=== PATIENT | female | born 2000 | race Caucasian/White ===

== ENCOUNTER 2020-05-17 21:58 | Emergency (ER) | payer OTHER ==
[2020-05-17 22:35] LABS: Absolute Lymphocytes (CBC) 2.6 K/uL (0.7-4.9); Basophils % 0.9 % (0-1.3); Lymphocytes % 21.3 % (15.3-44.8); MPV 7.9 fL (7.6-11.3); Potassium 3.8 mmol/L (3.5-5.1); RBC Red Blood Cell Count 4.44 M/uL (3.86-4.86)
[2020-05-17] MEDS ORDERED: FENTANYL CITR 100 MCG/2 ML ONE (22:36)
[2020-05-17] MEDS ORDERED: NA CHLORIDE 0.9% 1,000 ML ONE (22:36)
[2020-05-17] MEDS ORDERED: TETANUS & DIPHTHERIA TOX,ADULT 0.5 ML VIAL ONE (22:37)
[2020-05-17] MEDS ORDERED: CEFAZOLIN/SWI 1gm 1 GM/10 ML SYR ONE (22:37)
[2020-05-18] MEDS ORDERED: FENTANYL CITR 100 MCG/2 ML ONE
[2020-05-18 00:11] LABS: Protime INR 1.06
[2020-05-18] MEDS ORDERED: IBUPROFEN 400 MG TAB ONE (01:06)
[2020-05-18] MEDS ORDERED: HYDROCODONE/APAP 7.5/325 MG TAB ONE (01:06)
--- NOTE | 2020-05-18 01:48 | ER ---
Nurse's Notes [facility] Name: Ana Paula Gao Age: 20 yrs Sex: Female : 2000 Arrival Date: 05/17/2020 Time: 22:00 Bed 14 Private MD: Diagnosis: Struck by venomous snake - rattlesnake;Mild envenomation Presentation: 05/17 22:00 Chief complaint: Patient states: "the pt is reporting to be bitten by a rattle snake jd3 about 45 min ago. bite noted to the left foot.". Coronavirus screen: Proceed with normal triage. Ebola Screen: Patient negative for fever greater than or equal to 101.5 degrees Fahrenheit, and additional compatible Ebola Virus Disease symptoms. Initial Sepsis Screen: Does the patient meet any 2 criteria? No. Patient's initial sepsis screen is negative. Does the patient have a suspected source of infection? No. Patient's initial sepsis screen is negative. Risk Assessment: Do you want to hurt yourself or someone else? Patient reports no desire to harm self or others. Onset of symptoms was May 17, 2020. 22:00 Method Of Arrival: EMS: [facility] jd3 22:00 Acuity: MARTIN 2 jd3 Triage Assessment: 22:15 General: Appears in no apparent distress. Behavior is calm, cooperative. Pain: ks7 Complains of pain in left foot Pain currently is 8 out of 10 on a pain scale. Quality of pain is described as sharp, Pain began 30 min ago. Injury Description: Bite sustained to left foot caused by a snake, is from animal, was sustained 30-60 minutes ago. 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 - Social history:: Smoking status: Patient denies any tobacco usage or history of. Screenin:19 Abuse screen: Denies threats or abuse. Denies injuries from another. Nutritional ks7 screening: No deficits noted. Tuberculosis screening: No symptoms or risk factors identified. Fall Risk None identified. 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 pt c;/o 8/10 pain ks7 concentrated in L foot area only. aaox4. 22:34 Reassessment: baseline area marked upon arrival to ED 14. swelling noted and 2 puncture ks7 wounds. 22:50 Reassessment: no change to snake bite wound bed. ks7 23:05 Reassessment: no change to snake bite wound bed. pt resting in bed, eating food. pain ks7 controlled with fentanyl. 23:20 Reassessment: no change to wound size. ks7 23:34 Reassessment:. Pain:. ks7 23:52 Reassessment: Pt c/o increasing pain. reassessed L ankle, increase in swelling noted. ks7 area marked with pen \\T\\ 2334. Notified Molly TURN SUPERVISOR, pain meds ordered. Pain: Complains of pain in left foot Pain currently is 7 out of 10 on a pain scale. Quality of pain is described as aching, tender. 05/18 00:03 Reassessment: pt resting comfortably. waiting for results. ks7 00:23 General: Appears in no apparent distress. uncomfortable, Behavior is calm, cooperative, jd3 appropriate for age. Pain: Complains of pain in left medial ankle Quality of pain is described as aching, tender. Neuro: Level of Consciousness is awake, alert, obeys commands, Oriented to person, place, time, situation. Cardiovascular: Denies chest pain, Capillary refill < 3 seconds Patient's skin is warm and dry. Respiratory: Airway is patent Respiratory effort is even, unlabored, Respiratory pattern is regular, symmetrical, Denies cough, shortness of breath. GI: No signs and/or symptoms were reported involving the gastrointestinal system. Patient currently denies diarrhea, nausea, vomiting. : No signs and/or symptoms were reported regarding the genitourinary system. EENT: No signs and/or symptoms were reported regarding the EENT system. Derm: Skin is intact, Skin is dry, Skin is normal, Skin temperature is warm Wound noted Other: snake bite wound noted to left foot. Musculoskeletal: Circulation, motion, and sensation intact. Range of motion: intact in all extremities, Swelling present in left medial ankle. 01:17 Reassessment: Patient appears in no apparent distress at this time. Patient and/or jd3 family updated on plan of care and expected duration. Pain level reassessed. Patient is alert, oriented x 3, equal unlabored respirations, skin warm/dry/pink. provider at bedside. 01:58 Reassessment: pt reporting nausea, vomiting X1. provider notified. jd3 02:05 Reassessment: Patient appears in no apparent distress at this time. Patient and/or jd3 family updated on plan of care and expected duration. Pain level reassessed. Patient is alert, oriented x 3, equal unlabored respirations, skin warm/dry/pink. awaiting discharge Patient states feeling better. 02:37 Reassessment: Patient appears in no apparent distress at this time. Patient and/or jd3 family updated on plan of care and expected duration. Pain level reassessed. Patient is alert, oriented x 3, equal unlabored respirations, skin warm/dry/pink. pt reported understanding of discharge instructions, assisted pt to vehicle. Vital Signs: 05/17 22:01 BP 125 / 84; Pulse 87; Resp 15 S; Temp 99.2(TE); Pulse Ox 99% on R/A; Weight 72.57 kg jd3 (R); Height 5 ft. 8 in. (172.72 cm) (R); Pain 7/10; 22:15 BP 126 / 78; Pulse 83; Resp 18; Temp 99.2(TE); Pulse Ox 100% on R/A; Pain 8/10; ks7 22:45 BP 118 / 76; Pulse 68; Resp 18; Temp 99(TE); Pulse Ox 100% on R/A; Pain 2/10; ks7 23:00 BP 122 / 88; Pulse 70; Resp 16; Temp 98.3(TE); Pulse Ox 100% on R/A; Pain 2/10; ks7 23:15 BP 115 / 75; Pulse 73; Resp 18; Temp 98.3(TE); Pulse Ox 100% on R/A; Pain 4/10; ks7 23:30 BP 108 / 75; Pulse 71; Resp 16; Temp 98.3(TE); Pulse Ox 99% on R/A; Pain 7/10; ks7 23:45 BP 116 / 78; Pulse 78; Resp 16; Pulse Ox 100% on R/A; Pain 7/10; ks7 07/26 00:00 BP 108 / 75; Pulse 71; Resp 16; Pulse Ox 99% on R/A; Pain 3/10; ks7 00:26 BP 109 / 74; Pulse 68; Resp 16 S; Pulse Ox 100% on R/A; jd3 01:16 BP 111 / 82; Pulse 77; Resp 18 S; Pulse Ox 100% on R/A; jd3 02:04 BP 114 / 78; Pulse 72; Resp 20 S; Pulse Ox 99% on R/A; jd3 05/17 22:01 Body Mass Index 24.33 (72.57 kg, 172.72 cm) jd3 Vitals: 05/17 23:34 Cardiac Rhythm Assessment Regular Sinus rhythm. ks7 ED Course: 22:00 Patient arrived in ED. jd3 22:01 Triage completed. jd3 22:03 [facility]C [facility] snw 22:03 Will Garrett MD is Attending Physician. snw 22:03 Arm band placed on. jd3 22:14 Test, Serum Sent. dh4 22:14 Chem 7 Sent. dh4 22:14 CBC with Diff Sent. dh4 22:14 Ptt, Activated Sent. dh4 22:15 Pauly Fernandez, RN is Primary Nurse. ks7 22:15 PT-INR Sent. dh4 22:15 Fibrinogen Sent. dh4 22:19 Resting quietly. ks7 22:19 Patient has correct armband on for positive identification. Bed in low position. Call ks7 light in reach. Side rails up X2. 22:19 No provider procedures requiring assistance completed. Inserted saline lock: 20 gauge ks7 in left antecubital area, using aseptic technique. Blood collected. 22:21 Foot Left 2 View XRAY Sent. ks7 22:21 Test, Serum Sent. ks7 22:21 Chem 7 Sent. ks7 22:21 CBC with Diff Sent. ks7 22:21 Ptt, Activated Sent. ks7 22:21 PT-INR Sent. ks7 22:22 Fibrinogen Sent. ks7 22:23 Foot Left 2 View XRAY In Process Unspecified. EDMS 23:45 Resting quietly. ks7 05/18 02:38 IV discontinued, intact, bleeding controlled, No redness/swelling at site. Pressure jd3 dressing applied. Administered Medications: 05/17 22:25 Drug: NS 0.9% 1000 ml Route: IV; Rate: 75 ml/hr; Site: left antecubital; ks 22:27 Drug: fentaNYL (PF) 50 mcg Route: IVP; Site: left antecubital; ks 22:28 Drug: Tetanus-Diphtheria Toxoid Adult 0.5 ml {Compensation And Benefits Advisor: WiN MS. Exp: 12/07/2021. Lot #: [id number]. } Route: IM; Site: left deltoid; 22:38 Drug: Ancef 1 grams Route: IVPB; Site: left antecubital; ks 23:52 Drug: fentaNYL (PF) 50 mcg Route: IVP; Rate: bolus; Site: left antecubital; 7 05/18 00:50 Follow up: Response: No adverse reaction; RASS: Alert and Calm (0) jd3 01:00 Drug: [place] (7.5 mg-325 mg) 1 tabs Route: PO; jd3 02:00 Follow up: Response: No adverse reaction; RASS: Alert and Calm (0) jd3 01:00 Drug: Motrin 400 mg Route: PO; jd3 02:00 Follow up: Response: No adverse reaction jd3 01:58 Drug: morphine 4 mg Route: IM; Site: left deltoid; jd3 02:30 Follow up: Response: No adverse reaction; RASS: Alert and Calm (0) jd3 01:58 Drug: Zofran (Ondansetron) 4 mg Route: IVP; Site: left antecubital; jd3 02:30 Follow up: Response: No adverse reaction jd3 Outcome: 01:47 Discharge ordered by . snmay 02:37 Discharged to home via wheelchair, with family. jd3 02:37 Condition: stable 02:37 Discharge instructions given to patient, Instructed on discharge instructions, follow up and referral plans. medication usage, Demonstrated understanding of instructions, follow-up care, medications, Prescriptions given X 3. 02:38 Patient left the ED. jd3 Signatures: Dispatcher [employer] EDMS Molly Levi FNP-C FNP-Osmar Molina RN RN jd3 Patel Ellis [facility] Pauly Fernandez RN RN ks7 Corrections: (The following items were deleted from the chart) 05/17 23:55 23:52 Reassessment: Pt c/o increasing pain. reassessed L ankle, increase in swelling ks7 noted. area marked with pen \\T\\ 2334. Notified Molly TURN SUPERVISOR, pain meds ordered. ks7 05/18 00:22 00:04 BP 3 / ???; Pulse Ox 100% RA; Pain 12/31 Adult ks7 jd3 02:05 02:05 Reassessment: Patient appears in no apparent distress at this time. Patient jd3 and/or family updated on plan of care and expected duration. Pain level reassessed. Patient is alert, oriented x 3, equal unlabored respirations, skin warm/dry/pink. Patient states feeling better. jd3
--- NOTE | 2020-05-18 01:48 | EDPHYS ---
Physician Documentation [facility] Name: Ana Paula Gao Age: 20 yrs Sex: Female : 2000 Arrival Date: 05/17/2020 Time: 22:00 Bed 14 Private MD: ED Physician Will Garrett HPI: 05/18 00:25 This 20 yrs old Female presents to ER via EMS with complaints of snakebite. snw 00:25 The patient presents with a bite, by a snake. The complaints affect the left foot. snw Context: [place]. Onset: The symptoms/episode began/occurred suddenly, just prior to arrival. Associated signs and symptoms: Pertinent positives: swelling. Severity of symptoms: At their worst the symptoms were mild, moderate. The patient has not experienced similar symptoms in the past. The patient has not recently seen a physician. [employer]ORATORY: 02:38 LMP N/A - Irregular menses jd3 Historical: - Allergies: 05/17 22:02 No Known Allergies; jd3 - Home Meds: 22:02 None [Active]; jd3 - PMHx: 22:02 None; jd3 - PSHx: 22:02 None; jd3 - Immunization history:: Adult Immunizations up to date. - Social history:: Smoking status: Patient denies any tobacco usage or history of. ROS: 05/18 00:23 MS/extremity: Positive for injury or acute deformity, swelling, tenderness, of the left snw medial malleolus. Constitutional: Negative for fever, chills, and weight loss, Eyes: Negative for injury, pain, redness, and discharge, ENT: Negative for injury, pain, and discharge, Neck: Negative for injury, pain, and swelling, Cardiovascular: Negative for chest pain, palpitations, and edema, Respiratory: Negative for shortness of breath, cough, wheezing, and pleuritic chest pain, Abdomen/GI: Negative for abdominal pain, nausea, vomiting, diarrhea, and constipation, Back: Negative for injury and pain, : Negative for injury, bleeding, discharge, and swelling, Skin: Negative for injury, rash, and discoloration, Neuro: Negative for headache, weakness, numbness, tingling, and seizure, Psych: Negative for depression, anxiety, suicide ideation, homicidal ideation, and hallucinations. Exam: 05/17 22:00 Constitutional: This is a well developed, well nourished patient who is awake, alert, snw and in no acute distress. Head/Face: Normocephalic, atraumatic. Eyes: Pupils equal round and reactive to light, extra-ocular motions intact. Lids and lashes normal. Conjunctiva and sclera are non-icteric and not injected. Cornea within normal limits. Periorbital areas with no swelling, redness, or edema. ENT: Nares patent. No nasal discharge, no septal abnormalities noted. Tympanic membranes are normal and external auditory canals are clear. Oropharynx with no redness, swelling, or masses, exudates, or evidence of obstruction, uvula midline. Mucous membranes moist. Neck: Trachea midline, no thyromegaly or masses palpated, and no cervical lymphadenopathy. Supple, full range of motion without nuchal rigidity, or vertebral point tenderness. No Meningismus. Chest/axilla: Normal chest wall appearance and motion. Nontender with no deformity. No lesions are appreciated. Cardiovascular: Regular rate and rhythm with a normal S1 and S2. No gallops, murmurs, or rubs. Normal PMI, no JVD. No pulse deficits. Respiratory: Lungs have equal breath sounds bilaterally, clear to auscultation and percussion. No rales, rhonchi or wheezes noted. No increased work of breathing, no retractions or nasal flaring. Abdomen/GI: Soft, non-tender, with normal bowel sounds. No distension or tympany. No guarding or rebound. No evidence of tenderness throughout. Back: No spinal tenderness. No costovertebral tenderness. Full range of motion. MS/ Extremity: Pulses equal, no cyanosis. Neurovascular intact. Full, normal range of motion. Neuro: Awake and alert, GCS 15, oriented to person, place, time, and situation. Cranial nerves II-XII grossly intact. Motor strength 5/5 in all extremities. Sensory grossly intact. Cerebellar exam normal. Normal gait. Psych: Awake, alert, with orientation to person, place and time. Behavior, mood, and affect are within normal limits. Skin: Appearance: normal except for affected area, injury, bite(s), superficial, of the left medial malleolus, contusion(s), that are superficial, of the left foot. Vital Signs: 22:01 BP 125 / 84; Pulse 87; Resp 15 S; Temp 99.2(TE); Pulse Ox 99% on R/A; Weight 72.57 kg jd3 (R); Height 5 ft. 8 in. (172.72 cm) (R); Pain 7/10; 22:15 BP 126 / 78; Pulse 83; Resp 18; Temp 99.2(TE); Pulse Ox 100% on R/A; Pain 8/10; ks7 22:45 BP 118 / 76; Pulse 68; Resp 18; Temp 99(TE); Pulse Ox 100% on R/A; Pain 2/10; ks7 23:00 BP 122 / 88; Pulse 70; Resp 16; Temp 98.3(TE); Pulse Ox 100% on R/A; Pain 2/10; ks7 23:15 BP 115 / 75; Pulse 73; Resp 18; Temp 98.3(TE); Pulse Ox 100% on R/A; Pain 4/10; ks7 23:30 BP 108 / 75; Pulse 71; Resp 16; Temp 98.3(TE); Pulse Ox 99% on R/A; Pain 7/10; ks7 23:45 BP 116 / 78; Pulse 78; Resp 16; Pulse Ox 100% on R/A; Pain 7/10; ks7 05/18 00:00 BP 108 / 75; Pulse 71; Resp 16; Pulse Ox 99% on R/A; Pain 3/10; ks7 00:26 BP 109 / 74; Pulse 68; Resp 16 S; Pulse Ox 100% on R/A; jd3 01:16 BP 111 / 82; Pulse 77; Resp 18 S; Pulse Ox 100% on R/A; jd3 02:04 BP 114 / 78; Pulse 72; Resp 20 S; Pulse Ox 99% on R/A; jd3 05/17 22:01 Body Mass Index 24.33 (72.57 kg, 172.72 cm) [facility] MDM: 05/17 22:10 Patient medically screened. snw 22:51 Response to treatment: the patient's symptoms have markedly improved after treatment, snw pain is much better per report post medication. 23:53 Data reviewed: vital signs, nurses notes, lab test result(s), radiologic studies, ankle snw with mild increase in edema proximal to bite. Data interpreted: Pulse oximetry: on room air is 100 %. Interpretation: normal. Counseling: I had a detailed discussion with the patient and/or guardian regarding: the historical points, exam findings, and any diagnostic results supporting the discharge/admit diagnosis, lab results, radiology results, the need for outpatient follow up, for definitive care. 05/17 22:06 Order name: Fibrinogen; Complete Time: 00:19 snw 05/17 22:06 Order name: PT-INR; Complete Time: 00:19 snw 05/17 22:06 Order name: Ptt, Activated; Complete Time: 00:19 snw 05/17 22:06 Order name: CBC with Diff; Complete Time: 22:56 snw 05/17 22:06 Order name: Chem 7; Complete Time: 22:35 snw 05/17 22:06 Order name: Test, Serum; Complete Time: 22:56 snw 05/17 22:06 Order name: Foot Left 2 View XRAY snw 05/17 22:11 Order name: Misc. Order: mathew measurements of edema area q 30min please; Complete Time: snw 22:14 Administered Medications: 22:25 Drug: NS 0.9% 1000 ml Route: IV; Rate: 75 ml/hr; Site: left antecubital; 22:27 Drug: fentaNYL (PF) 50 mcg Route: IVP; Site: left antecubital; 22:28 Drug: Tetanus-Diphtheria Toxoid Adult 0.5 ml {Hose Tubing Backer: Jianjian. Exp: ks7 12/07/2021. Lot #: [id number]. } Route: IM; Site: left deltoid; 22:38 Drug: Ancef 1 grams Route: IVPB; Site: left antecubital; ks 23:52 Drug: fentaNYL (PF) 50 mcg Route: IVP; Rate: bolus; Site: left antecubital; 05/18 00:50 Follow up: Response: No adverse reaction; RASS: Alert and Calm (0) jd3 01:00 Drug: [place] (7.5 mg-325 mg) 1 tabs Route: PO; jd3 02:00 Follow up: Response: No adverse reaction; RASS: Alert and Calm (0) jd3 01:00 Drug: Motrin 400 mg Route: PO; jd3 02:00 Follow up: Response: No adverse reaction jd3 01:58 Drug: morphine 4 mg Route: IM; Site: left deltoid; jd3 02:30 Follow up: Response: No adverse reaction; RASS: Alert and Calm (0) jd3 01:58 Drug: Zofran (Ondansetron) 4 mg Route: IVP; Site: left antecubital; jd3 02:30 Follow up: Response: No adverse reaction jd3 Disposition: 05:29 Co-signature as Attending Physician, Will Garrett MD I agree with the assessment and tw4 plan of care. Disposition: 05/18/20 01:47 Discharged to Home. Impression: Struck by venomous snake - rattlesnake, Mild envenomation. - Condition is Stable. - Discharge Instructions: Snake Bite. - Prescriptions for Ultram 50 mg Oral Tablet - take 1 tablet by ORAL route every 6 hours As needed; 12 tablet. Doxycycline Hyclate 100 mg Oral Tablet - take 1 tablet by ORAL route every 12 hours; 20 tablet. promethazine 25 mg Oral Tablet - take 1 tablet by ORAL route every 6 hours As needed; 20 tablet. - Medication Reconciliation Form, Thank You Letter, Antibiotic Education, Prescription Opioid Use, Work release form form. - Follow up: Emergency Department; When: As needed; Reason: Worsening of condition. Follow up: Private Physician; When: 2 - 3 days; Reason: Recheck today's complaints, Continuance of care, Re-evaluation by your physician. Signatures: Dispatcher [employer] EDND Molly Levi FNP-C DRILLER AND BROACHER-Osmar Molina RN Will Schaffer MD MD tw4 Pauly Fernandez RN RN ks7 Corrections: (The following items were deleted from the chart) 02:38 01:47 05/18/2020 01:47 Discharged to Home. Impression: Struck by venomous snake - jd3 rattlesnake; Mild envenomation. Condition is Stable. Forms are Medication Reconciliation Form, Thank You Letter, Antibiotic Education, Prescription Opioid Use. Follow up: Emergency Department; When: As needed; Reason: Worsening of condition. Follow up: Private Physician; When: 2 - 3 days; Reason: Recheck today's complaints, Continuance of care, Re-evaluation by your physician. snw
[2020-05-18] MEDS ORDERED: MORPHINE 4 MG/ML SYR ONE (01:57)
[2020-05-18] MEDS ORDERED: ONDANSETRON 4 MG/2 ML VIAL ONE (02:01)
[2020-05-18 03:05] VITALS: TEMP 98.3
[2020-05-18 03:21] VITALS: BP 114/78; O2SAT 99
--- NOTE | 2020-05-18 10:30 | RAD REPORT ---
EXAM DESCRIPTION: RAD - Foot Left 2 View - 05/17/2020 10:23 pm CLINICAL HISTORY: Left Foot pain FINDINGS: No fracture or dislocation is seen. No radiopaque foreign body is seen
== END 2020-05-18 02:38 | disposition home or self-care (01) ==
LOC: ER 21:58
DX: T63.011A Toxic effect of rattlesnake venom, accidental (unintentional), initial encounter (principal); Z23 Encounter for immunization
CPT/HCPCS: 85025; 80048; 36415; 85384; 84703; 85610; 85730; 73620; 90714; J3010; J0690; J7030; J2405; 90471; 96372; 96374; 96375; 99284

== ENCOUNTER 2020-05-19 09:53 | Emergency (ER) | payer OTHER ==
[2020-05-19 10:44] LABS: ALT/SGPT 16 U/L (12-78); AST/SGOT 12 U/L (15-37); Albumin 3.8 g/dL (3.4-5.0); Alkaline Phosphatase 84 U/L (45-117); BUN Blood Urea Nitrogen 10 mg/dL (7-18); Bicarbonate 27 mmol/L (21-32); Bilirubin Total 0.5 mg/dL (0.2-1.0); Glucose Level 107 mg/dL (74-106); Potassium 3.7 mmol/L (3.5-5.1); Protein, Total 7.2 g/dL (6.4-8.2); Sodium Level 139 mmol/L (136-145)
--- NOTE | 2020-05-19 11:26 | RAD REPORT ---
EXAM DESCRIPTION: US - Extremity Venous Uni Ltd - 05/19/2020 11:08 am CLINICAL HISTORY: Pain;Swelling, snake bite COMPARISON: None. TECHNIQUE: Real-time sonographic evaluation of the left lower extremity deep venous system was perfo rmed. FINDINGS: Normal compressibility, flow augmentation, phasic flow and spontaneous flow are identified in the left lower extremity common femoral, superficial femoral, popliteal and posterior tibial vein s. No intraluminal filling defects seen. A few small lymph nodes are seen in the groin. No abscess or focal fluid collection in the soft tissu es. IMPRESSION: No DVT in the left lower extremity.
[2020-05-19 11:32] LABS: Absolute Lymphocytes (CBC) 1.5 K/uL (0.7-4.9); Basophils % 0.3 % (0-1.3); Hematocrit 40.1 % (36.0-45.0); Lymphocytes % 9.6 % (15.3-44.8); MPV 8.8 fL (7.6-11.3)
[2020-05-19 12:44] LABS: Blood Morphology Comment NOT SEEN (NOT SEEN); Platelet Estimate DECR
[2020-05-19 12:51] LABS: Protime INR ND
[2020-05-19] MEDS ORDERED: NA CHLORIDE 0.9% 250 ML ONE (14:03)
[2020-05-19] MEDS ORDERED: CROTALIDAE ANTIVENIM 1 GM VIAL IV ONE (14:04)
[2020-05-19 15:25] VITALS: TEMP 98.1
[2020-05-19 15:42] VITALS: BP 104/59; O2SAT 99
--- NOTE | 2020-05-19 21:29 | EDPHYS ---
Physician Documentation [facility] Name: Ana Paula Gao Age: 20 yrs Sex: Female : 2000 Arrival Date: 05/19/2020 Time: 09:59 Bed 4 Private MD: None, None ED Physician Monroe Lopez HPI: 05/19 10:25 This 20 yrs old Female presents to ER via Ambulatory with complaints of Snake pm1 bite 2 days ago foot swelling. 10:25 The patient was bitten on the medial [place] of left foot, [place] Onset: pm1 The symptoms/episode began/occurred Between 2100 and 2200 on 05/17/2020. Animal information: Rattle Snake approximately 1.5 feet in length. Patient took picture of it and saw the rattler. Secondary to the bite the patient reports Increased pain and swelling up left leg. Associated signs and symptoms: Pertinent negatives: fever, motor deficit, numbness distal to wound. Severity of symptoms: in the emergency department the symptoms are actually worse. The patient has not experienced similar symptoms in the past. The patient has been recently seen at the [facility] Emergency Department, Seen for the same snake bite on 05/17/2020. Labs and imaging performed. Patient discharged to home with antibiotics, pain medication, and antiemetics. Patient presents to the ER with complaints of increased swelling and pain to left lower extremity. Patient was bitten on the left foot. Area of swelling marked on her left foot and her swelling and pain has increased to mid palacio and calf. Patient denies any bleeding or bruising. Historical: - Allergies: 10:10 No Known Allergies; ss - PMHx: 10:10 None; ss - PSHx: 10:10 None; ss - Immunization history:: Adult Immunizations up to date. - Social history:: Smoking status: Patient denies any tobacco usage or history of. ROS: 10:25 Constitutional: Negative for fever, chills, and weight loss, Cardiovascular: Negative pm1 for chest pain, palpitations, and edema, Respiratory: Negative for shortness of breath, cough, wheezing, and pleuritic chest pain. 10:25 Neuro: Negative for headache, weakness, numbness, tingling, and seizure. 10:25 Abdomen/GI: Positive for nausea, Negative for abdominal pain, vomiting, diarrhea, constipation. 10:25 MS/extremity: Positive for pain, swelling, of the left leg. 10:25 Skin: Positive for swelling, of the left leg. Exam: 10:25 Constitutional: This is a well developed, well nourished patient who is awake, alert, pm1 and in no acute distress. Head/Face: Normocephalic, atraumatic. 10:25 Cardiovascular: Exam negative for acute changes, Rate: normal, Rhythm: regular, Pulses: Pulses are 2+ in left popliteal artery. brisk capillary refill to left toes. 10:25 Respiratory: Exam negative for acute changes, respiratory distress, shortness of breath. 10:25 Skin: Appearance: normal except for affected area, swelling, noted on the left foot and midlevel of left calf and palacio, Redness, medial aspect of left foot, left ankle and midlevel of left calf. 10:25 Neuro: Exam negative for acute changes, Orientation: Mentation: is normal, Motor: is normal, moves all fours. 13:05 Skin: on the medial aspect of left thigh, mild bruising from ultrasound exam. pm1 Vital Signs: 10:07 BP 103 / 77; Pulse 90; Resp 17; Temp 98.1(TE); Pulse Ox 100% on R/A; Weight 72.57 kg; ss Height 5 ft. 8 in. (172.72 cm); Pain 0/10; 10:35 BP 106 / 73; Pulse 78; Resp 16; Pulse Ox 98% ; sv 11:16 BP 105 / 78; Pulse 79; Resp 16; Pulse Ox 98% ; sv 12:00 BP 107 / 70; Pulse 66; Resp 16; Pulse Ox 99% ; sv 12:36 BP 105 / 67; Pulse 66; Resp 16; Pulse Ox 100% ; sv 13:20 BP 104 / 60; Pulse 66; Resp 16; Pulse Ox 99% ; sv 14:34 BP 108 / 67; Pulse 77; Resp 16; Pulse Ox 100% ; sv 15:06 BP 104 / 59; Pulse 78; Resp 16; Pulse Ox 99% ; sv 10:07 Body Mass Index 24.33 (72.57 kg, 172.72 cm) ss MDM: 10:03 Patient medically screened. pm1 12:36 ED course: Lab technicians called to inform that PT/INR and PTT are not measurable due pm1 to the low Fibrinogen level. Pending fibrinogen level. 13:35 Physician consultation: Operator Automated Process Poison Control Give the patient crofab loading pm1 dose and three maintenance doses. 6 hours after final maintenance dose test coagulation profile. 13:50 ED course: Crotalid Snakebite Severity Score 6. pm1 13:53 Data reviewed: vital signs. Data interpreted: Pulse oximetry: on room air is 99 %. pm1 Interpretation: normal. Counseling: I had a detailed discussion with the patient and/or guardian regarding: the historical points, exam findings, and any diagnostic results supporting the discharge/admit diagnosis, lab results, radiology results, the need to transfer to another facility, for higher level of care. 14:05 Physician consultation: ER MD Choe was contacted at 14:05, regarding regarding pm1 transfer, patient's condition, and will see patient in ED. 05/19 10:10 Order name: Ptt, Activated; Complete Time: 13:53 pm1 05/19 10:10 Order name: PT-INR; Complete Time: 13:53 pm1 05/19 10:10 Order name: CBC with Diff; Complete Time: 12:47 pm1 05/19 10:10 Order name: CMP; Complete Time: 10:50 pm1 05/19 12:36 Order name: Fibrinogen; Complete Time: 13:53 EDMS 05/19 10:10 Order name: IV Saline Lock; Complete Time: 10:28 pm1 05/19 10:16 Order name: Extremity Venous Uni Ltd US; Complete Time: 11:32 pm1 05/19 10:46 Order name: Labs - recollect needed: CBC and COAGS; Complete Time: 11:15 ss 05/19 12:44 Order name: Manual Differential; Complete Time: 12:47 EDMS Administered Medications: 14:22 Drug: CroFab 6 vials {Note: started at 50 mls/hr.} Route: IV; Rate: calculated rate; sv Site: right antecubital; 14:37 Follow up: Rate change 250 calculated rate sv 15:14 Follow up: Response: No adverse reaction; IV Status: Infusion continued upon transfer sv Disposition: 16:21 Co-signature as Attending Physician, Monroe Lopez MD. rn Disposition: 05/19/20 13:55 Transfer ordered to [facility]. Diagnosis is Toxic effect of rattlesnake venom - struck by venomous snake to left foot. - Reason for transfer: Higher level of care. - Accepting physician is Jeremy Ingram MD. - Condition is Stable. - Problem is new. - Symptoms have improved. Signatures: Dispatcher [employer] EDSD Enriqueta Horton, RN Monroe Krishna MD MD rn Smirch, Shelby, RN RN ss Marinas, Patrick, DIRECTOR OF CAMPUS RECREATION DIRECTOR OF CAMPUS RECREATION pm1 Corrections: (The following items were deleted from the chart) 12:45 12:35 FIBRINOGEN+COAG.LAB.BRZ ordered. EDSD EDMS 13:58 13:55 05/19/2020 13:55 Transfer ordered to [facility]. Diagnosis is Toxic pm1 effect of rattlesnake venom - struck by venomous snake. Reason for transfer: Higher level of care. Accepting physician is Jeremy Ingram MD. Condition is Stable. Problem is new. Symptoms have improved. pm1 15:16 13:58 05/19/2020 13:55 Transfer ordered to [facility]. Diagnosis is Toxic sv effect of rattlesnake venom - struck by venomous snake to left foot. Reason for transfer: Higher level of care. Accepting physician is Jeremy Ingram MD. Condition is Stable. Problem is new. Symptoms have improved. pm1
--- NOTE | 2020-05-19 21:29 | ER ---
Nurse's Notes [facility] Name: Ana Paula Gao Age: 20 yrs Sex: Female : 2000 Arrival Date: 05/19/2020 Time: 09:59 Bed 4 Private MD: None, None Diagnosis: Toxic effect of rattlesnake venom-struck by venomous snake to left foot Presentation: 05/19 10:07 Chief complaint: Patient states: Bitten by a rattlesnake on Tuesday, was discharged ss home, but swelling and bruising is work this morning. Coronavirus screen: Patient denies a cough. Patient denies shortness of breath or difficulty breathing. Patient denies measured and/or subjective temperature greater than 100.4F prior to today's visit. Patient denies travel on a cruise ship or to a country the [facility] currently lists as an affected area. Patient denies contact with known and/or suspected case of COVID-19. Ebola Screen: Patient denies exposure to infectious person. Patient denies travel to an Ebola-affected area in the 21 days before illness onset. Initial Sepsis Screen: Does the patient meet any 2 criteria? No. Patient's initial sepsis screen is negative. Does the patient have a suspected source of infection? No. Patient's initial sepsis screen is negative. Risk Assessment: Do you want to hurt yourself or someone else? Patient reports no desire to harm self or others. Onset of symptoms was May 17, 2020. 10:07 Method Of Arrival: Ambulatory ss 10:07 Acuity: MARTIN 2 ss Triage Assessment: 10:15 General: Appears in no apparent distress. comfortable, well developed, Behavior is sv calm, cooperative, appropriate for age. Pain: Denies pain. Neuro: Level of Consciousness is awake, alert, obeys commands, Oriented to person, place, time, situation, Moves all extremities. Full function. Respiratory: Airway is patent Respiratory effort is even, unlabored, Respiratory pattern is regular, symmetrical, Denies shortness of breath. Derm: Skin is pink, warm \T\ dry. Bruising that is dark purple, on left foot. Musculoskeletal: Swelling present in lateral aspect of left calf, left lateral ankle, lateral aspect of left foot, left calf, left Achilles, left heel, medial aspect of left calf, left medial ankle, medial aspect of left foot, left palacio, anterior aspect of left ankle and dorsum of left foot Redness noted going up the left calf as well. Historical: - Allergies: 10:10 No Known Allergies; ss - PMHx: 10:10 None; ss - PSHx: 10:10 None; ss - Immunization history:: Adult Immunizations up to date. - Social history:: Smoking status: Patient denies any tobacco usage or history of. Screenin:31 Abuse screen: Denies threats or abuse. Denies injuries from another. Nutritional sv screening: No deficits noted. Tuberculosis screening: No symptoms or risk factors identified. Fall Risk None identified. Assessment: 11:10 Reassessment: Outside lab states that there is interference with her blood and the sv machine, they are requesting another serum specimen. Informed Harley LI. 11:10 Reassessment: Patient appears in no apparent distress at this time. Patient and/or sv family updated on plan of care and expected duration. Pain level reassessed. Patient is alert, oriented x 3, equal unlabored respirations, skin warm/dry/pink. 12:00 Derm: Bruising that is dark purple, on medial aspect of left thigh. sv 14:00 Reassessment: Patient appears in no apparent distress at this time. Patient and/or sv family updated on plan of care and expected duration. Pain level reassessed. Patient is alert, oriented x 3, equal unlabored respirations, skin warm/dry/pink. 14:34 Reassessment: Patient appears in no apparent distress at this time. Patient and/or sv family updated on plan of care and expected duration. Pain level reassessed. Patient is alert, oriented x 3, equal unlabored respirations, skin warm/dry/pink. 14:37 Reassessment: Pt reports no adverse reactions from the Crofab, Crofab increased to 250 sv mls/hr. 15:06 Reassessment: Report given to Manolo from EMS. sv Vital Signs: 10:07 BP 103 / 77; Pulse 90; Resp 17; Temp 98.1(TE); Pulse Ox 100% on R/A; Weight 72.57 kg; ss Height 5 ft. 8 in. (172.72 cm); Pain 0/10; 10:35 BP 106 / 73; Pulse 78; Resp 16; Pulse Ox 98% ; sv 11:16 BP 105 / 78; Pulse 79; Resp 16; Pulse Ox 98% ; sv 12:00 BP 107 / 70; Pulse 66; Resp 16; Pulse Ox 99% ; sv 12:36 BP 105 / 67; Pulse 66; Resp 16; Pulse Ox 100% ; sv 13:20 BP 104 / 60; Pulse 66; Resp 16; Pulse Ox 99% ; sv 14:34 BP 108 / 67; Pulse 77; Resp 16; Pulse Ox 100% ; sv 15:06 BP 104 / 59; Pulse 78; Resp 16; Pulse Ox 99% ; sv 10:07 Body Mass Index 24.33 (72.57 kg, 172.72 cm) ss ED Course: 09:59 Patient arrived in ED. mr 09:59 None, None is Private Physician. mr 10:03 Harley Ordoñez, JEN is PHCP. pm1 10:03 Monroe Lopez MD is Attending Physician. pm1 10:10 Triage completed. ss 10:10 Enriqueta Horton, JYOTI is Primary Nurse. sv 10:10 Arm band placed on right wrist. ss 10:15 Patient has correct armband on for positive identification. Bed in low position. Call sv light in reach. Pulse ox on. NIBP on. Door closed. Head of bed elevated. 10:15 Inserted saline lock: 20 gauge in right antecubital area, using aseptic technique. sv Blood collected. Flushed right antecubital with 5 ml normal saline. 10:39 Awaiting: ultrasound. sv 11:08 Extremity Venous Uni Ltd US In Process Unspecified. EDMS 11:54 Notified Nurse Practitioner and/or Physician Sider of a critical lab result(s), ss platelet-41,000. 14:34 No provider procedures requiring assistance completed. Patient transferred, IV remains sv in place. intact. 14:40 transfer transportation to receiving facility. sv Administered Medications: 14:22 Drug: CroFab 6 vials {Note: started at 50 mls/hr.} Route: IV; Rate: calculated rate; sv Site: right antecubital; 14:37 Follow up: Rate change 250 calculated rate sv 15:14 Follow up: Response: No adverse reaction; IV Status: Infusion continued upon transfer sv Outcome: 13:55 ER care complete, transfer ordered by . pm1 14:33 Transferred by ground EMS to [facility], Transfer form completed. X-rays sent sv w/ patient. Note: Report given to Emory MONTES 14:33 Condition: stable 14:33 Instructed on the need for transfer. 15:16 Patient left the ED. sv Signatures: Dispatcher [employer] Enriqueta Menezes, RN RN sv Margarito Erin mr EthanStephenie, JYOTI RN ss Harley Ordoñez, SALES PROGRAM MANAGER SALES PROGRAM MANAGER pm1 Corrections: (The following items were deleted from the chart) 14:34 11:10 Reassessment: Patient appears in no apparent distress at this time. No changes sv from previously documented assessment. Patient and/or family updated on plan of care and expected duration. Pain level reassessed. Patient is alert, oriented x 3, equal unlabored respirations, skin warm/dry/pink. sv 14:37 14:22 CroFab 6 vials IV at calculated rate in right antecubital sv sv
== END 2020-05-19 15:16 | disposition short-term general hospital (02) ==
LOC: ER 09:53
DX: T63.011D Toxic effect of rattlesnake venom, accidental (unintentional), subsequent encounter (principal); Y92.832 Beach as the place of occurrence of the external cause
CPT/HCPCS: 85025; 36415; 85384; 85610; 80053; 93971; J0840; J7050; 96365; 99285